=== PATIENT | female | born 1930 | race Caucasian/White ===

== ENCOUNTER 2019-04-02 14:02 | Inpatient (IN) | payer OTHER ==
[~2019-04-02] VITALS: Ht 147.3 cm; Wt 56.7 kg
[2019-04-02 14:04] VITALS: BP 140/57
--- NOTE | 2019-04-02 14:14 | NUR ---
PT AMB TO BED 6.
--- NOTE | 2019-04-02 14:33 | NUR ---
88 Y/O FEMALE PRESENTED WITH C/C OF PAIN IN THE RIGHT LOWER EAR 12/15, UNABLE TO DESCRIBE THE PAIN, DOES NOT RADIATE, BEEN THERE SINCE MONDAY. PER DAUGHTER SHE HAS NO TROUBLE SWALLOWING, TOOK IBUPROFEN WITH NO RELIEF. PER DAUGHTER PT HAS NKA. MEDICAL HX OF DEMENTIA, HTN, THYROID DISEASE AND OSTEOPOROSIS. MEDICATION ON REGULAR BASIS FOR THYROID, HTN, AND DEMENTIA. LAST ORAL INTAKE TODAY WITH NO COMPLICATIONS. DENIES N/V/D. SIDE RAIL X1. DAUGHTER AT BEDSIDE.
--- NOTE | 2019-04-02 15:58 | NUR ---
PT GOING TO CT VIA WHEELCHAIR
[2019-04-02] MEDS ORDERED: IBUPROFEN 800 MG TAB PO ONE (16:40)
--- NOTE | 2019-04-02 16:40 | NUR ---
VITAL SIGNS STABLE. PT REQUESTING IBUPROFEN FOR PAIN 12/[address] LINK NOTIFIED
--- NOTE | 2019-04-02 16:41 | NUR ---
DR LINK AT BEDSIDE
--- NOTE | 2019-04-02 16:42 | NUR ---
MOTRIN PO ADMINISTERED BY IRAIDA FARRAR
--- NOTE | 2019-04-02 17:16 | NUR ---
PT HAS SIGNED CONSENT FORM FOR CT WITH CONTRAST
--- NOTE | 2019-04-02 17:27 | NUR ---
IV INSRTED INTO PTS R AC AND LABS DRAWN BEDSIDE
[2019-04-02 17:41] LABS: BASOPHILS # (AUTO) 0.1 K/uL (0.00-0.22); BASOPHILS % (AUTO) 0.6 % (0.0-2.0); EOSINOPHILS # (AUTO) 0.2 K/uL (0-0.4); EOSINOPHILS % (AUTO) 2.2 % (0.0-4.0); HEMATOCRIT 35.5 % (36-48); HEMOGLOBIN 11.6 g/dL (12.0-16.0); LYMPHOCYTES # (AUTO) 1.8 K/uL (2.5-16.5); LYMPHOCYTES % (AUTO) 19.7 % (20.5-51.1); MEAN CORPUSCULAR HEMOGLOBIN 29 pg (27-31); MEAN CORPUSCULAR HGB CONC 33 g/dL (33-37); MEAN CORPUSCULAR VOLUME 87.8 fL (80-94); MONOCYTES # (AUTO) 0.7 K/uL (0.8-1.0); MONOCYTES % (AUTO) 7.6 % (1.7-9.3); NEUTROPHILS # (AUTO) 6.6 K/uL (1.8-7.7); NEUTROPHILS % (AUTO) 69.9 % (42.2-75.2); PLATELET COUNT (AUTO) 256 K/uL (140-450); RED BLOOD CELL COUNT(AUTO) 4.04 MIL/uL (4.20-5.40); RED CELL DISTRIBUTION WIDTH 15.1 % (11.6-13.7); WHITE BLOOD COUNT (AUTO) 9.4 K/uL (4.8-10.8)
--- NOTE | 2019-04-02 17:57 | NUR ---
PT AMBULATED TO RESTROOM WITH STEADY GAIT
[2019-04-02 18:05] LABS: ALBUMIN 3.3 g/dL (3.4-5.0); AMYLASE 47 U/L (25-115); ANION GAP 14.1 (8-16); ASPARTATE AMINOTRANSFERASE 20 U/L (15-37); CARBON DIOXIDE 27.4 mmol/L (21-32); CHLORIDE 103 mmol/L (98-107); CREATININE 0.6 mg/dL (0.6-1.3); GLUCOSE 98 mg/dL (74-106); POTASSIUM 3.5 mmol/L (3.5-5.1); SODIUM SERUM 141 mmol/L (136-145); TOTAL BILIRUBIN 0.2 mg/dL (0.0-1.0); UREA NITROGEN, BLOOD 23 mg/dL (7-18)
--- NOTE | 2019-04-02 18:24 | NUR ---
PT ALERT AND AWAKE, VSS, PENDING CT WITH CONTRAST AT THIS TIME
--- NOTE | 2019-04-02 18:27 | NUR ---
PT TAKEN TO CT VIA WHEELCHAIR
--- NOTE | 2019-04-02 18:49 | NUR ---
PT RETURNED FROM CT VIA WHEELCHAIR
--- NOTE | 2019-04-02 19:13 | NUR ---
REPORT GIVEN TO PURVI
[2019-04-02] MEDS ORDERED: AMLO10TA PO (19:15)
[2019-04-02] MEDS ORDERED: MEMA10TA PO (19:16)
[2019-04-02] MEDS ORDERED: SYN.1 PO (19:17)
--- NOTE | 2019-04-02 19:21 | NUR ---
Dr. Rich and Dr. Silva at bedside.
[2019-04-02] MEDS ORDERED: MORPHINE SULFATE 2 MG/ML SYR IVP PRN (19:35)
[2019-04-02] MEDS ORDERED: ONDANSETRON 4 MG/2 ML VIAL IM/IVP PRN (19:35)
[2019-04-02] MEDS ORDERED: ACETAMINOPHEN 325 MG TAB PO PRN (19:35)
[2019-04-02] MEDS ORDERED: DOCUSATE SODIUM 100 MG GELCAP PO PRN (19:35)
--- NOTE | 2019-04-02 19:41 | NUR ---
Dr. Smith speaking to patient via remote communication.
--- NOTE | 2019-04-02 19:43 | NUR ---
TELEPSYCH, DR. GUZMAN, CALLED AND SPOKE WITH PRIMARY RN. Andrés JULIEN
[2019-04-02 20:30] LABS: PROTHROMBIN TIME 9.4 secs (10.8-13.4)
--- NOTE | 2019-04-02 20:30 | NUR ---
PT TRANSFERRED TO [facility] RM 127A. PT TRANSFERRED VIA [facility] WITH [place] EMT; STABLE CONDITION. REPORT GIVEN TO DIGNA FARRAR. PT CARE TRANSFERRED TO RECEIVING RN.
--- NOTE | 2019-04-02 20:30 | NUR ---
RECEIVED PATIENT FROM ED VIA GURNEY. PT IS AMBULATORY WITH FAMILY AT BEDSIDE. BEDSIDE REPORT GIVEN BY PURVI. NO SOB OR DISTRESS NOTED. PT IS KOREAN SPEAKING. PT ON TELE MONITORING. IV ACCESS ON RIGHT AC 20 GAUGE, PATENT AND INTACT. SKIN INTACT. NOTED WITH CLOSED NECK ABSCESS ON RIGHT SIDE OF NECK. INITIAL VITAL SIGNS TAKEN. MRSA SWAB DONE AND SENT TO LAB. UA COLLECTED AND SENT TO LAB. INITIAL ASSESSMENT DONE. PT ORIENTED TO ROOM. BOARD UPDATED. WILL CONTINUE TO MONITOR PATIENT.
[2019-04-02 20:31] LABS: MAGNESIUM 1.7 mg/dL (1.8-2.4); PHOSPHORUS 4.5 mg/dL (2.5-4.9); THYROID STIMULATING HORMONE 4.53 uIU/mL (0.34-3.74)
[2019-04-02] MEDS ORDERED: NITROGLYCERIN 0.4 MG TAB SL PRN (20:50)
[2019-04-02] MEDS ORDERED: METOPROLOL 25 MG TAB PO SCH (21:00)
[2019-04-02] MEDS: NACL 0.9% 1,000 ML IV SCH (21:37)
[2019-04-02] MEDS ORDERED: CLINDAMYCIN 600 MG in DEXTROSE 5% 50 ML IV SCH (22:00)
[2019-04-02] MEDS ORDERED: MAGNESIUM OXIDE 400 MG TAB PO SCH (22:00)
[2019-04-02] MEDS ORDERED: CLINDAMYCIN 600 MG/4 ML VIAL ONE (22:06)
[2019-04-02] MEDS ORDERED: cefTRIAXone 1,000 MG VIAL ONE (22:07)
--- NOTE | 2019-04-02 22:13 | NUR ---
ROUNDS DONE. VISIBLE CHEST RISE AND FALL NOTED. WILL CONTINUE TO MONITOR PATIENT.
[2019-04-02] MEDS ORDERED: VANCOMYCIN PER PHARMACY MC PRN (22:50)
[2019-04-02 23:26] LABS: APPEARANCE,URINE CLEAR (CLEAR); BILIRUBIN,URINE NEGATIVE (NEGATIVE); BLOOD, URINE NEGATIVE (NEGATIVE); COLOR,URINE YELLOW (YELLOW); LEUKOCYTE ESTERASE ,URINE NEGATIVE (NEGATIVE); NITRITE, URINE NEGATIVE (NEGATIVE); PH,URINE 6.5 (5.0-9.0); UGLUCOSE NEGATIVE (NEGATIVE)
[2019-04-02] MEDS ORDERED: VANCOMYCIN 1,000 MG VIAL ONE (23:29)
[2019-04-02] MEDS ORDERED: VANCOMYCIN 1GM/DEXT 5% PREMIX 200 ML IV SCH (23:30)
--- NOTE | 2019-04-02 23:30 | NUR ---
IV ANTIBIOTIC VANCOMYCIN STARTED AT THIS TIME. WILL CONTINUE TO MONITOR PATIENT.
[2019-04-03 00:15] VITALS: BP 140/54
--- NOTE | 2019-04-03 00:15 | NUR ---
VITAL SIGNS TAKEN AT THIS TIME. NO SOB OR DISTRESS NOTED. WILL CONTINUE TO MONITOR PATIENT.
--- NOTE | 2019-04-03 02:30 | NUR ---
ROUNDS DONE. NO SOB OR DISTRESS NOTED. CALL LIGHT WITHIN PT REACH. WILL CONTINUE TO MONITOR.
[2019-04-03 04:15] VITALS: BP 133/59
--- NOTE | 2019-04-03 04:20 | NUR ---
VITAL SIGNS TAKEN AT THIS TIME. NO SOB OR DISTRESS NOTED. WILL CONTINUE TO MONITOR PATIENT.
[2019-04-03] MEDS ORDERED: CLINDAMYCIN 600 MG in DEXTROSE 5% 50 ML IV SCH (05:00)
[2019-04-03] MEDS: NACL 0.9% 1,000 ML IV SCH ×2 (05:33→09:35)
[2019-04-03] MEDS: LEVOTHYROXINE 0.1 MG TAB PO SCH (05:50)
[2019-04-03 06:27] LABS: ANION GAP 11.8 (8-16); CARBON DIOXIDE 28.9 mmol/L (21-32); CHLORIDE 104 mmol/L (98-107); CHOL/HDL RATIO 1.8 (1-4.5); CREATININE 0.5 mg/dL (0.6-1.3); GLUCOSE 105 mg/dL (74-106); POTASSIUM 3.7 mmol/L (3.5-5.1); SODIUM SERUM 141 mmol/L (136-145); UREA NITROGEN, BLOOD 12 mg/dL (7-18)
[2019-04-03 06:40] LABS: MAGNESIUM 1.8 mg/dL (1.8-2.4); PHOSPHORUS 3.7 mg/dL (2.5-4.9)
[2019-04-03 06:55] LABS: BASOPHILS # (AUTO) 0.1 K/uL (0.00-0.22); BASOPHILS % (AUTO) 0.9 % (0.0-2.0); EOSINOPHILS # (AUTO) 0.2 K/uL (0-0.4); EOSINOPHILS % (AUTO) 2.4 % (0.0-4.0); HEMATOCRIT 34.8 % (36-48); HEMOGLOBIN 11.5 g/dL (12.0-16.0); LYMPHOCYTES # (AUTO) 1.5 K/uL (2.5-16.5); LYMPHOCYTES % (AUTO) 17.1 % (20.5-51.1); MEAN CORPUSCULAR HEMOGLOBIN 29 pg (27-31); MEAN CORPUSCULAR HGB CONC 33 g/dL (33-37); MEAN CORPUSCULAR VOLUME 87.7 fL (80-94); MONOCYTES # (AUTO) 0.7 K/uL (0.8-1.0); MONOCYTES % (AUTO) 7.8 % (1.7-9.3); NEUTROPHILS # (AUTO) 6.5 K/uL (1.8-7.7); NEUTROPHILS % (AUTO) 71.8 % (42.2-75.2); PLATELET COUNT (AUTO) 244 K/uL (140-450); RED BLOOD CELL COUNT(AUTO) 3.97 MIL/uL (4.20-5.40); RED CELL DISTRIBUTION WIDTH 14.8 % (11.6-13.7); WHITE BLOOD COUNT (AUTO) 9.1 K/uL (4.8-10.8)
--- NOTE | 2019-04-03 06:59 | NUR ---
PT IN STABLE CONDITION. CALL LIGHT WITHIN PATIENT REACH. WILL ENDORSE TO AM SHIFT NURSE FOR CONTINUITY OF CARE.
--- NOTE | 2019-04-03 07:10 | NUR ---
RECEIVED REPORT FROM NIGHT NURSE. PT IS AWAKE AND ALERT. IV NS AT 100 MLS/ HR. RESPIRATION ARE EVEN AND UNLABORED ON ROOM AIR. PT IS STABLE. CALL LIGHT WITHIN REACH. BED ALARM ON.
[2019-04-03 08:00] VITALS: BP 141/60
--- NOTE | 2019-04-03 08:25 | NUR ---
PATIENT HAS BEEN SCREENED AND CATEGORIZED LOW NUTRITION RISK. PATIENT WILL BE SEEN WITHIN 7 DAYS OF ADMISSION. 04/09/[address]
[2019-04-03] MEDS ORDERED: LISINOPRIL 5 MG TAB PO SCH (09:00)
[2019-04-03] MEDS ORDERED: ATORVASTATIN 20 MG TAB PO SCH (09:00)
[2019-04-03] MEDS ORDERED: ASPIRIN 81 MG TAB.CHEW PO SCH (09:00)
--- NOTE | 2019-04-03 09:13 | NUR ---
DISCHARGE PLANNING: RECEIVED AN ORDER FOR HIGHER LEVEL TRANSFER FOR PAROTID GLAND ABSCESS. CONTACTED [facility] AT [phone], ABLE TO SPEAK TO CRISTIAN REGARDING INQUIRY. PROVIDED HIM WITH INFORMATION, HE STATED HE WILL OPEN THE CASE AND START INQUIRING FOR THE PHYSICIAN. CONTACTED [facility] AT [phone], ABLE TO SPEAK TO CORINNA CASTILLO REGARDING INQUIRY. SHE STATED SHE WILL WAIT FOR CLINICALS. PROVIDED HER WITH MY CONTACT INFORMATION. CONTACTED [facility] AT [phone] OPT 3, ABLE TO SPEAK TO VIKAS REGARDING INQUIRY. HE STATED TO FAX CLINICALS TO [phone] Addendum: 04/03/19 at 1021 by Halina Christianson CM RECEIVED A CALL FROM CARLOS OF [facility] TO GATHER MORE INFORMATION REGARDING THE PATIENT. ALL INFORMATION PROVIDED TO HER. SHE STATED SHE WILL START LOOKING FOR A PHYSICIAN. 0948: RECEIVED A VOICEMAIL FROM CORINNA OF [facility], SHE WAS ASKING FOR PHYSICIAN'S CONTACT INFO FOR PEER TO PEER CALL. DR. ART MADE AWARE. Addendum: 04/03/19 at 1547 by Lucrecia Higuera CM DC PLANNING: CALLED [facility] [phone] OPT 2-OPT 3 SPOKE WITH [facility] STATED THE NURSE IS REVIEWING THE CASE AND WILL CALL BACK . IF IT IS AFTER HR WILL CALL THE FLOOR . Addendum: 04/05/19 at 0915 by Lucrecia Higuera CM DC PLANNING CALLED [facility] S[facility]ORD[facility] , THEY CONTACTED OUR MD ON 04/03/19 AT [address] SPO[address] SHANE AND THE TRANSFER IS CANCELLED , I CLARIFIED WITH DR REED NO NEED TO TRANSFER PT TO HIGHER LEVEL OF CARE.
[2019-04-03] MEDS: LACTOBACILLUS RHAMNOSUS GG 1 EACH CAP PO SCH (09:29)
[2019-04-03] MEDS: MEMANTINE 10 MG TAB PO SCH (09:29)
[2019-04-03] MEDS: amLODIPine 5 MG TAB PO SCH (09:30)
--- NOTE | 2019-04-03 09:40 | NUR ---
PT RESTING IN BED, WATCHING TV. PT HAS HEARING AIDES ON. PT IS STABLE, RESPIRATIONS ARE EVEN AND UNLABORED. CALL LIGHT WITHIN REACH.
[2019-04-03] MEDS ORDERED: ACET-9529 PO ×2 (10:37→17:34)
[2019-04-03] MEDS ORDERED: LACT10CA PO ×2 (10:37→17:34)
[2019-04-03] MEDS ORDERED: ONDA2SOL45 IM/IVP (10:37)
[2019-04-03] MEDS ORDERED: Vancomycin Per Pharmacy MC (10:37)
[2019-04-03] MEDS ORDERED: ACET-1182 PO (10:37)
[2019-04-03] MEDS ORDERED: DOCU-299 PO ×2 (10:37→17:34)
[2019-04-03 12:00] VITALS: BP 139/61
[2019-04-03] MEDS: HYDROcodone/APAP 7.5/325 MG 1 TAB PO PRN (13:16)
--- NOTE | 2019-04-03 13:16 | NUR ---
MEDICATED PT FOR NECK PAIN. PT RESTING IN BED. GRANDSON BY BEDSIDE. INFORMED PT AND FAMILY MEMBER OF CURRENT POC. PT'S RESPIRATION ARE EVEN AND UNLABORED ON ROOM AIR. PT IS STABLE. CALL LIGHT WITHIN REACH.
[2019-04-03] MEDS: DEXT 5% /NACL 0.9% 1,000 ML IV SCH ×2 (14:30→22:27)
--- NOTE | 2019-04-03 15:18 | NUR ---
FREQUENT ROUNDS, PT WAS ASLEEP BUT WOKE UP. ASKED THE PT IF SHE NEEDED ANYTHING. PT SAID "NO, MERVAT A ADILIA". IV RUNNING D5NS AT 100 ML/H. PT IS STABLE, RESPIRATION ARE EVEN AND UNLABORED ON ROOM AIR. CALL LIGHT WITHIN REACH.
[2019-04-03 16:00] VITALS: BP 112/64
--- NOTE | 2019-04-03 18:00 | NUR ---
PT OFF UNIT FOR I&D NECK ABSCESS. PT IS STABLE CONDITION.
[2019-04-03] MEDS ORDERED: ONDANSETRON 4 MG/2 ML VIAL ONE (18:14)
[2019-04-03] MEDS ORDERED: PROPOFOL 200 MG/20 ML VIAL IV ONE (18:14)
[2019-04-03] MEDS ORDERED: LIDOCAINE 1% 500 MG/50 ML VIAL ONE (18:14)
[2019-04-03] MEDS ORDERED: DEXAMETHASONE 4 MG/ML VIAL ONE (18:14)
[2019-04-03] MEDS ORDERED: DESFLURANE 240 ML BTL INH ONE (18:14)
[2019-04-03] MEDS ORDERED: BUPIVACAINE-MPF 0.25% 30 ML VIAL INJ ONE (18:15)
[2019-04-03] MEDS ORDERED: fentaNYL 0.05 MG/ML VIAL ONE (18:17)
--- NOTE | 2019-04-03 19:05 | NUR ---
PT OFF THE UNIT FOR I&D NECK ABSCESS. GAVE REPORT TO NIGHT NURSE FOR CONTINUITY OF CARE.
--- NOTE | 2019-04-03 19:06 | NUR ---
RECEIVED BEDSIDE REPORT FROM DAY RN. PT IS OFF UNIT IN OR FOR SURGERY WITH DR GUERRERO FOR I&D OF NECK ABSCESS.
--- NOTE | 2019-04-03 19:50 | NUR ---
PATIENT IS BACK FROM OR RECEIVED BEDSIDE REPORT FROM YOSSI FARRAR. PT IS AAOX4. [place] OF [place]. ON NC 2L O2. RESPIRATIONS ARE EQUAL AND UNLABORED. LUNG SOUNDS ARE CLEAR. PT S/P I&D OF R NECK ABSCESS DRESSING IS INTACT WITH NOTED BRIGHT RED DRAINAGE. PER LITHOGRAPHIC ETCHER PACKED WITH 2 2X2, DRY GAUZE ON TOP DR GUERRERO WILL SEE PATIENT TOMORROW AM. DENIES PAIN. IV ON R HAND 20G WILL CONTINUE IVF. DAUGHTER ASKING IF PT CAN EAT NEW ORDER FOR REGULAR DIET WILL GIVE JUICE AND JELLO. POC DISCUSSED WITH PT AND FAMILY. VSS : 142/64 HR 88 94% ON 2L RR 18 97.6 ORAL. NEW ORDER FOR MED/SURG. WILL CONTINUE TO MONITOR.
[2019-04-03 20:00] VITALS: BP 142/64
--- NOTE | 2019-04-03 20:19 | NUR ---
TAD MAY FROM [facility] CALLED AND SAID IF PT STILL IS HERE OR NOT AND HE IS WORKING ON HER TRANSFER. WE CONFIRM W/RESIDENT AND HE SAID HE WILL CANCEL TRANSFER.SO I CALLED [facility] AND TALKED W/YADIRA THAT TRANSFER IS CANCELLED.
--- NOTE | 2019-04-03 21:55 | NUR ---
PATIENT IS RESTING COMFORTABLY IN BED. CHEST RISE AND FALL. SAFETY MEASURES ARE IN PLACE.
[2019-04-03] MEDS: VANCOMYCIN 1,000 MG in DEXTROSE 5% 250 ML IV SCH (23:33)
--- NOTE | 2019-04-03 23:33 | NUR ---
VANCO NOW INFUSING PER ORDERS. VITAL SIGNS ARE WITHIN NORMAL LIMITS. ASSISTED PATIENT TO RESTROOM HAS STEADY GAIT. REPORT PAIN TOLERABLE. ALL NEEDS MET. DAUGHTER AT BEDSIDE. WILL CONTINUE TO MONITOR.
[2019-04-04] VITALS: BP 120/59
--- NOTE | 2019-04-04 01:57 | NUR ---
PATIENT IS SLEEPING COMFORTABLY IN BED WITH EYES CLOSED. CHEST RISE AND FALL. NO S/S OF DISTRESS. DAUGHTER AT BEDSIDE. WILL CONTINUE TO MONITOR.
--- NOTE | 2019-04-04 04:28 | NUR ---
PATIENT IS SLEEPING COMFORTABLY IN BED EYES CLOSED. CHEST RISE AND FALL. DAUGHTER AT BEDSIDE.
--- NOTE | 2019-04-04 05:28 | NUR ---
RECEIVED CALL FROM JANETH HE WAS CALLING FROM [facility] WITH A BED TO TRANSFER PATIENT. INFORMED HIM DOCTOR CANCELED THE ORDER TO TRANSFER TO HIGH LEVEL A CARE YESTERDAY. PATIENT IS STAYING IN [place].
[2019-04-04] MEDS: LEVOTHYROXINE 0.1 MG TAB PO SCH (05:55)
--- NOTE | 2019-04-04 05:55 | NUR ---
JIA MEDICATION GIVEN PER ORDERS. REINFORCED DRESSING ON NECK. SURGEON DR GUERRERO WILL CHANGE DRESSING TODAY. AND EDUCATED PATIENT ON USING IS PT.
[2019-04-04 06:01] LABS: ANION GAP 13.8 (8-16); CARBON DIOXIDE 27.5 mmol/L (21-32); CHLORIDE 101 mmol/L (98-107); CREATININE 0.7 mg/dL (0.6-1.3); GLUCOSE 228 mg/dL (74-106); POTASSIUM 4.3 mmol/L (3.5-5.1); SODIUM SERUM 138 mmol/L (136-145); UREA NITROGEN, BLOOD 12 mg/dL (7-18)
[2019-04-04] MEDS: DEXT 5% /NACL 0.9% 1,000 ML IV SCH ×2 (06:09→19:00)
[2019-04-04] MEDS ORDERED: DRY DRESSING TP PRN (06:15)
--- NOTE | 2019-04-04 06:35 | NUR ---
PT UNABLE TO PERFORMED INCENTIVE SPIROMETER. HOWEVER, PT IS DOING EARLY MOBILIZATION (WALKING).
--- NOTE | 2019-04-04 07:12 | NUR ---
RECEIVED REPORT FROM NIGHT NURSE. PT AWAKE IN BED, AAOX4. DENIES PAIN, NO DISTRESS NOTED. SURGICAL WOUND TO THE RIGHT CHEEK, OTHERWISE SKIN INTACT. RESPIRATIONS EVEN AND UNLABORED ON ROOM AIR, CLEAR BREATH SOUNDS. IV IN PLACE PATENT ASYMPTOMATIC AND INTACT INFUSING PER ORDER IN R HAND 20G. SAFETY MEASURES IN PLACE. BED IN LOW POSITION. CALL LIGHT WITHIN REACH. WILL CONTINUE TO MONITOR.
--- NOTE | 2019-04-04 07:15 | NUR ---
GAVE BEDSIDE REPORT TO DAY RN. PT ENDORSED IN STABLE CONDITION.
[2019-04-04 08:00] VITALS: BP 127/66
[2019-04-04 09:24] LABS: BASOPHILS % (AUTO) 0.1 % (0.0-2.0); HEMATOCRIT 34.9 % (36-48); HEMOGLOBIN 11.5 g/dL (12.0-16.0); LYMPHOCYTES # (AUTO) 0.7 K/uL (2.5-16.5); LYMPHOCYTES % (AUTO) 9.1 % (20.5-51.1); MEAN CORPUSCULAR HEMOGLOBIN 29 pg (27-31); MEAN CORPUSCULAR HGB CONC 33 g/dL (33-37); MEAN CORPUSCULAR VOLUME 87.7 fL (80-94); MONOCYTES # (AUTO) 0.2 K/uL (0.8-1.0); NEUTROPHILS # (AUTO) 6.7 K/uL (1.8-7.7); NEUTROPHILS % (AUTO) 88.8 % (42.2-75.2); PLATELET COUNT (AUTO) 236 K/uL (140-450); RED BLOOD CELL COUNT(AUTO) 3.98 MIL/uL (4.20-5.40); RED CELL DISTRIBUTION WIDTH 15.1 % (11.6-13.7); WHITE BLOOD COUNT (AUTO) 7.5 K/uL (4.8-10.8)
[2019-04-04] MEDS: LACTOBACILLUS RHAMNOSUS GG 1 EACH CAP PO SCH (09:34)
[2019-04-04] MEDS: amLODIPine 5 MG TAB PO SCH (09:35)
[2019-04-04] MEDS: MEMANTINE 10 MG TAB PO SCH (09:35)
--- NOTE | 2019-04-04 09:38 | NUR ---
MEDICATIONS ADMINISTERED PER ORDER. PT TOLERATED WELL. NO DISTRESS NOTED. DENIES PAIN. SAFETY MEASURES IN PLACE. WILL CONTINUE TO MONITOR.
--- NOTE | 2019-04-04 11:58 | NUR ---
PT IN BED AWAKE, EATING A SNACK, ACCOMPANIED BY HER DAUGHTER. NO DISTRESS NOTED. DENIES PAIN. SAFETY MEASURES IN PLACE. CALL LIGHT WITHIN REACH. WILL CONTINUE TO MONITOR.
[2019-04-04] MEDS ORDERED: PIPERACILLIN/TAZOBACTAM 4.5 GM in DEXTROSE 5% 100 ML IV SCH ×4 (12:00)
--- NOTE | 2019-04-04 12:19 | NUR ---
RECEIVED CALL FROM DR. GUERRERO INSTRUCTING TO NOT DO DRESSING CHANGE UNTIL HE COMES IN TODAY.
[2019-04-04] MEDS ORDERED: PIPERACILLIN/TAZOBACTAM 2.25 GM in DEXTROSE 5% 50 ML IV SCH ×2 (13:00→13:30)
[2019-04-04] MEDS: DRY DRESSING TP SCH (13:26)
--- NOTE | 2019-04-04 14:15 | NUR ---
MEDICATIONS ADMINISTERED PER ORDER. PT TOLERATED WELL. NO DISTRESS NOTED, DENIES PAIN. SAFETY MEASURES IN PLACE. WILL CONTINUE TO MONITOR.
[2019-04-04 16:00] VITALS: BP 123/55
--- NOTE | 2019-04-04 16:08 | NUR ---
VITAL SIGNS TAKEN AT THIS TIME. PT IN BED AWAKE. SAFETY MEASURES IN PLACE. CALL LIGHT WITHIN REACH. SAFETY MEASURES IN PLACE. WILL CONTINUE TO MONITOR.
[2019-04-04] MEDS: PIPERACILLIN/TAZOBACTAM 2.25 GM in DEXTROSE 5% 50 ML IV SCH (18:06)
--- NOTE | 2019-04-04 18:07 | NUR ---
MEDICATIONS ADMINISTERED PER ORDER. PT TOLERATED WELL, NO DISTRESS NOTED. SAFETY MEASURES IN PLACE. WILL CONTINUE TO MONITOR.
--- NOTE | 2019-04-04 19:21 | NUR ---
REPORT GIVEN TO NIGHT NURSE FOR CONTINUITY OF CARE.
--- NOTE | 2019-04-04 19:22 | NUR ---
PATIENT ALERT AND ORIENTED X4. UPPER SORBIAN SPEAKING. NO APPARENT DISTRESS NOTED. WILL CONTINUE TO MONITOR. WITH RIGHT HAND 20G RUNNING IVF. WILL CONTINUE TO MONITOR.
[2019-04-04] MEDS ORDERED: MELATONIN 3 MG TAB PO PRN (21:15)
--- NOTE | 2019-04-04 21:20 | NUR ---
PATIENT ASLEEP IN BED. NO APPARENT DISTRESS NOTED. WILL CONTINUE TO MONITOR.
[2019-04-04] MEDS ORDERED: MORPHINE SULFATE 4 MG/ML SYR ONE (22:36)
[2019-04-04] MEDS: VANCOMYCIN 1,000 MG in DEXTROSE 5% 250 ML IV SCH (22:47)
--- NOTE | 2019-04-04 23:15 | NUR ---
ASSISTED PATIENT TO BATHROOM. NO APPARENT DISTRESS NOTED. WILL CONTINUE TO MONITOR.
--- NOTE | 2019-04-04 23:40 | NUR ---
DR. GUERRERO CAME TO CHANGE DRESSING ON RIGHT NECK S/P I&D. MEDICATED WITH MORPHINE PRIOR TO DRESSING CHANGE. WILL CONTINUE TO MONITOR.
[2019-04-05] VITALS: BP 132/59
[2019-04-05] MEDS: PIPERACILLIN/TAZOBACTAM 2.25 GM in DEXTROSE 5% 50 ML IV SCH ×4 (00:51→17:40)
--- NOTE | 2019-04-05 01:12 | NUR ---
PATIENT ASLEEP IN BED. NO APPARENT DISTRESS NOTED. WILL CONTINUE TO MONITOR.
--- NOTE | 2019-04-05 02:45 | NUR ---
PATIENT ASLEEP IN BED. BED ON LOW POSITION. CALL LIGHT WITHIN REACH. WILL CONTINUE TO MONITOR.
[2019-04-05] MEDS: DEXT 5% /NACL 0.9% 1,000 ML IV SCH (04:33)
--- NOTE | 2019-04-05 04:40 | NUR ---
ASSISTED PATIENT TO RESTROOM. TOLERATED WELL. NO APPARENT DISTRESS NOTED. WILL CONTINUE TO MONITOR.
[2019-04-05] MEDS: LEVOTHYROXINE 0.1 MG TAB PO SCH (06:07)
[2019-04-05 06:24] LABS: ANION GAP 12.5 (8-16); CARBON DIOXIDE 27.6 mmol/L (21-32); CHLORIDE 108 mmol/L (98-107); CREATININE 0.8 mg/dL (0.6-1.3); GLUCOSE 130 mg/dL (74-106); POTASSIUM 4.1 mmol/L (3.5-5.1); SODIUM SERUM 144 mmol/L (136-145); UREA NITROGEN, BLOOD 13 mg/dL (7-18)
[2019-04-05 06:28] LABS: MAGNESIUM 1.7 mg/dL (1.8-2.4); PHOSPHORUS 2.8 mg/dL (2.5-4.9)
--- NOTE | 2019-04-05 06:35 | NUR ---
PATIENT ASLEEP IN BED. NO APPARENT DISTRESS NOTED. VISIBLE CHEST RISE AND FALL NOTED. WILL CONTINUE TO MONITOR.
[2019-04-05 06:36] LABS: BASOPHILS # (AUTO) 0.1 K/uL (0.00-0.22); BASOPHILS % (AUTO) 0.5 % (0.0-2.0); EOSINOPHILS # (AUTO) 0.2 K/uL (0-0.4); EOSINOPHILS % (AUTO) 1.8 % (0.0-4.0); HEMATOCRIT 30.9 % (36-48); HEMOGLOBIN 10.1 g/dL (12.0-16.0); LYMPHOCYTES # (AUTO) 2.2 K/uL (2.5-16.5); LYMPHOCYTES % (AUTO) 21.7 % (20.5-51.1); MEAN CORPUSCULAR HEMOGLOBIN 29 pg (27-31); MEAN CORPUSCULAR HGB CONC 33 g/dL (33-37); MEAN CORPUSCULAR VOLUME 87.9 fL (80-94); MONOCYTES # (AUTO) 0.8 K/uL (0.8-1.0); MONOCYTES % (AUTO) 7.6 % (1.7-9.3); NEUTROPHILS # (AUTO) 6.8 K/uL (1.8-7.7); NEUTROPHILS % (AUTO) 68.4 % (42.2-75.2); PLATELET COUNT (AUTO) 223 K/uL (140-450); RED BLOOD CELL COUNT(AUTO) 3.51 MIL/uL (4.20-5.40); WHITE BLOOD COUNT (AUTO) 9.9 K/uL (4.8-10.8)
--- NOTE | 2019-04-05 07:15 | NUR ---
ENDORSED TO AM SHIFT NURSE FOR CONTINUITY OF CARE.
--- NOTE | 2019-04-05 07:25 | NUR ---
RECEIVED BEDSIDE REPORT FROM ASSOCIATE BUYER NURSE. PT IS AWAKE AND ALERT IN BED, DAUGHTER IS AT THE BEDSIDE. PT ON ROOM AIR, NO C/O PAIN OR S/S OF DISTRESS. R NECK IS DRESSED WITH CLEAN DRY BANDAGE, S/P I&D. IV SITE R HAND 20 G, INFUSING D5NS 100 ML/HR. FALL PRECAUTIONS IN PLACE. CALL LIGHT IS WITHIN REACH. WILL CONTINUE TO MONITOR.
[2019-04-05 08:00] VITALS: BP 110/45
[2019-04-05] MEDS ORDERED: MAG SULF 2000 MG/WATER PREMIX 50 ML IV SCH (08:15)
[2019-04-05] MEDS: LACTOBACILLUS RHAMNOSUS GG 1 EACH CAP PO SCH (09:28)
[2019-04-05] MEDS: amLODIPine 5 MG TAB PO SCH (09:28)
[2019-04-05] MEDS: MEMANTINE 10 MG TAB PO SCH (09:29)
--- NOTE | 2019-04-05 09:42 | NUR ---
AM MEDS ADMINISTERED PT TOLERATED WELL. IV MAG INFUSING WELL
[2019-04-05] MEDS: NACL 0.9% 1,000 ML IV SCH (09:45)
[2019-04-05] MEDS: VANCOMYCIN 500 MG in DEXTROSE 5% 100 ML IV SCH ×2 (11:00→22:03)
[2019-04-05] MEDS: HYDROcodone/APAP 7.5/325 MG 1 TAB PO PRN ×2 (12:46→17:59)
[2019-04-05] MEDS: DRY DRESSING TP SCH (13:00)
--- NOTE | 2019-04-05 15:33 | NUR ---
PT IS RESTING COMFORTABLY IN BED AND WATCHING TV, NO S/S OF ACUTE DISTRESS NOTED
[2019-04-05 16:00] VITALS: BP 123/55
--- NOTE | 2019-04-05 17:21 | NUR ---
PT IS AMBULATING IN THE HALLWAY AT THIS TIME, WITH STANDBY ASSISTANCE OF THE DRY KILN FEEDER..
--- NOTE | 2019-04-05 18:13 | NUR ---
PT EATING DINNER, FAMILY IS AT BEDSIDE, IV ZOSYN IS INFUSING.
--- NOTE | 2019-04-05 18:45 | NUR ---
CHANGED PT'S BANDAID DRESSING. MINIMAL LIGHT PINK DRAINAGE NOTED ON THE OLD BANDAID. PACKING IS INTACT. NO S/S OF INFECTION NOTED AROUND THE INCISION SITE.
--- NOTE | 2019-04-05 19:25 | NUR ---
ENDORSED PT TO SHIP SUPERINTENDENT NURSE. PT IN INSTABLE CONDITION
--- NOTE | 2019-04-05 19:26 | NUR ---
RECEIVED REPORT FROM AM SHIFT NURSE. PATIENT ALERT AND ORIENTED X4. SLOVENIAN SPEAKING. WITH RIGHT HAND PIV 20G. BED ON LOW POSITION. BED ALARM ON. CALL LIGHT WITHIN REACH. WILL CONTINUE TO MONITOR.
--- NOTE | 2019-04-05 21:25 | NUR ---
PATIENT ASLEEP IN BED. NO APPARENT DISTRESS NOTED. WILL CONTINUE TO MONITOR.
--- NOTE | 2019-04-05 23:20 | NUR ---
ASSISTED PATIENT TO RESTROOM. SAFETY ENSURED. WILL CONTINUE TO MONITOR.
[2019-04-06] VITALS: BP 117/57
[2019-04-06] MEDS: PIPERACILLIN/TAZOBACTAM 2.25 GM in DEXTROSE 5% 50 ML IV SCH ×2 (00:15→05:43)
--- NOTE | 2019-04-06 01:15 | NUR ---
PATIENT ASLEEP IN BED. NO APPARENT DISTRESS NOTED. WILL CONTINUE TO MONITOR.
--- NOTE | 2019-04-06 02:10 | NUR ---
ASSISTED PATIENT TO RESTROOM. SAFETY ENSURED. WILL CONTINUE TO MONITOR.
--- NOTE | 2019-04-06 04:10 | NUR ---
PATIENT ASLEEP IN BED. NO APPARENT DISTRESS NOTED. WILL CONTINUE TO MONITOR.
[2019-04-06] MEDS: LEVOTHYROXINE 0.1 MG TAB PO SCH (05:40)
--- NOTE | 2019-04-06 06:10 | NUR ---
PATIENT ASLEEP IN BED. NO APPARENT DISTRESS NOTED. WILL CONTINUE TO MONITOR.
--- NOTE | 2019-04-06 06:57 | NUR ---
PATIENT HAS BEEN SCREENED AND CATEGORIZED HIGH NUTRITION RISK. PATIENT WILL BE SEEN WITHIN 1-2 DAYS OF ADMISSION. 04/07/19-04/08/19 MORRIS LEMUS MS, RDN
--- NOTE | 2019-04-06 07:00 | NUR ---
ENDORSED TO AM SHIFT NURSE IN STABLE CONDITION.
[2019-04-06 07:09] LABS: BASOPHILS # (AUTO) 0.1 K/uL (0.00-0.22); EOSINOPHILS # (AUTO) 0.4 K/uL (0-0.4); EOSINOPHILS % (AUTO) 5.8 % (0.0-4.0); HEMATOCRIT 33.4 % (36-48); LYMPHOCYTES # (AUTO) 3.1 K/uL (2.5-16.5); LYMPHOCYTES % (AUTO) 40.9 % (20.5-51.1); MEAN CORPUSCULAR HEMOGLOBIN 29 pg (27-31); MEAN CORPUSCULAR HGB CONC 33 g/dL (33-37); MEAN CORPUSCULAR VOLUME 87.1 fL (80-94); MONOCYTES # (AUTO) 0.7 K/uL (0.8-1.0); MONOCYTES % (AUTO) 8.6 % (1.7-9.3); NEUTROPHILS # (AUTO) 3.3 K/uL (1.8-7.7); NEUTROPHILS % (AUTO) 43.7 % (42.2-75.2); PLATELET COUNT (AUTO) 260 K/uL (140-450); RED BLOOD CELL COUNT(AUTO) 3.84 MIL/uL (4.20-5.40); RED CELL DISTRIBUTION WIDTH 15.1 % (11.6-13.7); WHITE BLOOD COUNT (AUTO) 7.6 K/uL (4.8-10.8)
[2019-04-06 07:20] LABS: ANION GAP 11.9 (8-16); CARBON DIOXIDE 30.3 mmol/L (21-32); CHLORIDE 104 mmol/L (98-107); CREATININE 0.7 mg/dL (0.6-1.3); GLUCOSE 96 mg/dL (74-106); POTASSIUM 4.2 mmol/L (3.5-5.1); SODIUM SERUM 142 mmol/L (136-145); UREA NITROGEN, BLOOD 9 mg/dL (7-18)
[2019-04-06 07:23] LABS: PHOSPHORUS 3.2 mg/dL (2.5-4.9)
--- NOTE | 2019-04-06 07:28 | NUR ---
RECEIVED BEDSIDE REPORT FROM HANDLE SEWER NURSE. PT IS AWAKE AND ALERT, NO S/S OF ACUTE DISTRESS NOTED. PT ON ROOM AIR, R NECK INCISION IS COVERED BY A CLEAN DRY GAUZE DRESSING SECURED BY PAPER TAPE. IV SITE R HAND 20 G, INFUSING NS 10 ML/HR. FALL PRECAUTIONS IN PLACE. CALL LIGHT IS WITHIN REACH
[2019-04-06 08:00] VITALS: BP 130/58
[2019-04-06] MEDS: VANCOMYCIN 500 MG in DEXTROSE 5% 100 ML IV SCH (10:20)
[2019-04-06] MEDS: LACTOBACILLUS RHAMNOSUS GG 1 EACH CAP PO SCH (10:20)
[2019-04-06] MEDS: MEMANTINE 10 MG TAB PO SCH (10:21)
[2019-04-06] MEDS: amLODIPine 5 MG TAB PO SCH (10:21)
[2019-04-06] MEDS: NACL 0.9% 1,000 ML IV SCH (10:30)
[2019-04-06] MEDS ORDERED: SULF-280 PO (11:18)
--- NOTE | 2019-04-06 13:00 | NUR ---
PT HAS DC'D. PT AND HER GRANDSON WERE GIVEN DC INSTRUCTIONS, ALONG WITH SUPPLIES FOR DRESSING CHANGES FOR HER INCISION. IV SITE AND WRIST BAND REMOVED. PT LEFT WITH ALL HER BELONGINGS IN STABLE CONDITION. Addendum: 04/06/19 at 1514 by Beatriz Wolfe RN PT DECLINED TAKING PHOTO OF NECK INCISION.
== END 2019-04-06 13:00 | disposition home or self-care (01) | DRG 155 ==
LOC: MED 14:02 → MMU 19:36 → MTU 04-04 10:21 → MMU 04-04 10:25
PROVIDERS: ADMIT General Practice; ATTEND General Practice
PROC: 0C9 Mouth and Throat, Drainage (ICD-10-PCS; principal; 2019-04-03 18:00)
DX: K11.3 Abscess of salivary gland (principal); E44.1 Mild protein-calorie malnutrition; E83.42 Hypomagnesemia; E03.9 Hypothyroidism, unspecified; E78.5 Hyperlipidemia, unspecified; F17.210 Nicotine dependence, cigarettes, uncomplicated; I10 Essential (primary) hypertension; M81.0 Age-related osteoporosis without current pathological fracture; F03.90 Unspecified dementia, unspecified severity, without behavioral disturbance, psychotic disturbance, mood disturbance, and anxiety; E78.00 Pure hypercholesterolemia, unspecified; H70.891 Other mastoiditis and related conditions, right ear; Z68.26 Body mass index [BMI] 26.0-26.9, adult
CPT/HCPCS: 36415; 70490; 70491; 71045; 75989; 76536; 80048; 80053; 80202; 81003; 82150; 83036; 83735; 84100; 84443; 85025; 85610; 85730; 87040; 87070; 87075; 87081; 87205; 99285; J0696; J1100; J1644; J2001; J2270; J2405; J2543; J2704; J3010; J3370; J3490; J7030; J7042; J7060; Q0092; Q9967